=== PATIENT | female | born 1950 | race Caucasian/White ===

== ENCOUNTER 2019-05-09 05:55 | Inpatient (IN) ==
--- NOTE | 2019-04-25 15:10 | PAT Medication Instructions ---
Medication Instructions Date of Service April 25, 2019 Home Medications atorvastatin [Lipitor] 40 mg PO HS 04/19/19 [History Confirmed 04/19/19] canagliflozin [Invokana] 300 mg PO QAM 04/19/19 [History Confirmed 04/19/19] digoxin [Digox] 250 mcg PO UD 04/19/19 [History Confirmed 04/19/19] gemfibrozil 600 mg PO BID 04/19/19 [History Confirmed 04/19/19] insulin glargine [Lantus U-100 Insulin] 75 unit SUBCUT BID 04/19/19 [History Confirmed 04/19/19] levothyroxine 25 mcg PO QAM 04/19/19 [History Confirmed 04/19/19] magnesium 250 mg PO HS 04/19/19 [History Confirmed 04/19/19] metoprolol tartrate 50 mg PO TID 04/19/19 [History Confirmed 04/19/19] lmadznww-kkn-fqrzv acid-biotin [Hair,Skin and Nails(FA-biotin)] 1 tab PO QAM oxycodone-acetaminophen [Percocet] 0.5 tab PO Q6H PRN paroxetine HCl 20 mg PO QAM 04/19/19 [History Confirmed 04/19/19] potassium gluconate 600 mg PO HS 04/19/19 [History Confirmed 04/19/19] sertraline [Zoloft] 50 mg PO QPM 04/19/19 [History Confirmed 04/19/19] STOP taking 2 weeks before surgery (or as soon as possible if surgery is within 2 weeks) ylbxtcim-jgh-saiki acid-biotin [Hair,Skin and Nails(FA-biotin)] 1 tab PO QAM STOP taking 48 hours before surgery gemfibrozil 600 mg PO BID 04/19/19 [History Confirmed 04/19/19] DO NOT take the morning of surgery canagliflozin [Invokana] 300 mg PO QAM 04/19/19 [History Confirmed 04/19/19] Take morning of surgery With a small sip of water, OTHERWISE NOTHING TO EAT OR DRINK AFTER MIDNIGHT: digoxin [Digox] 250 mcg PO UD 04/19/19 [History Confirmed 04/19/19] levothyroxine 25 mcg PO QAM 04/19/19 [History Confirmed 04/19/19] metoprolol tartrate 50 mg PO TID 04/19/19 [History Confirmed 04/19/19] oxycodone-acetaminophen [Percocet] 0.5 tab PO Q6H PRN (okay to take up to 4 hours prior to surgery if needed) paroxetine HCl 20 mg PO QAM 04/19/19 [History Confirmed 04/19/19] Take evening before surgery atorvastatin [Lipitor] 40 mg PO HS 04/19/19 [History Confirmed 04/19/19] insulin glargine [Lantus U-100 Insulin] 75 unit SUBCUT BID 04/19/19 [History Confirmed 04/19/19] magnesium 250 mg PO HS 04/19/19 [History Confirmed 04/19/19] metoprolol tartrate 50 mg PO TID 04/19/19 [History Confirmed 04/19/19] oxycodone-acetaminophen [Percocet] 0.5 tab PO Q6H PRN (if needed) potassium gluconate 600 mg PO HS 04/19/19 [History Confirmed 04/19/19] sertraline [Zoloft] 50 mg PO QPM 04/19/19 [History Confirmed 04/19/19] Insulin Dependent Diabetic Patients * Test your blood sugar the morning of surgery * If Blood Sugar is GREATER THAN 150, take HALF of your regular dose of: insulin glargine [Lantus U-100 Insulin] take 37 units * If Blood Sugar is LESS THAN 150, DO NOT TAKE ANY: insulin glargine [Lantus U- 100 Insulin] 75 unit SUBCUT BID Other Notes If you have any questions please call us at [phone] or [phone] or [phone] or [phone]
--- NOTE | 2019-04-26 10:16 | Anesthesiology Consultation ---
Date of Service April 26, 2019 Assessment & Plan (1) Encounter for pre-operative examination: - Check BSG AM DOS Chart Review Chart Review: Pending: Refer to Additional Notes / Consult section (pending preop testing (labs, EKG, CXR)) and Patient seen in Pre Admission Testing Teaching & Discussion Pre-Anesthesia Teaching/Discussion Notes: Instructed NPO after midnight before s urgery,except medications with 15 cc of water. Medication instructions provided according to the PAT guidelines. History Surgery Operation Date: 05/09/19 10:25 Proposed Procedures p L4-S1 Decompression and Fusion, Possible L3-L4 with Spinal Cord Monitoring - Joao uGerra, DO Height/Weight Height: 5 ft 4 in Weight: 71.9 kg Allergies Allergy/AdvReac Type Severity Reaction Status Date / Time Penicillins Allergy Severe HIVES, Verified 04/19/19 10:15 DIFFICULTY BREATHING metformin AdvReac ADVISED TO Verified 04/26/19 10:24 AVOID (SEE COMMENTS) Medications Home Medications Medication Instructions Recorded Confirmed Last Taken atorvastatin [Lipitor] 40 mg PO HS 04/19/19 04/19/19 Unknown canagliflozin [Invokana] 300 mg PO QAM 04/19/19 04/19/19 Unknown digoxin [Digox] 250 mcg PO UD 04/19/19 04/19/19 Unknown gemfibrozil 600 mg PO BID 04/19/19 04/19/19 Unknown insulin glargine [Lantus U-100 75 unit SUBCUT BID 04/19/19 04/19/19 Unknown Insulin] levothyroxine 25 mcg PO QAM 04/19/19 04/19/19 Unknown magnesium 250 mg PO HS 04/19/19 04/19/19 Unknown metoprolol tartrate 50 mg PO TID 04/19/19 04/19/19 Unknown fardvcwb-hkj-jglyq acid-biotin 1 tab PO QAM 04/19/19 04/19/19 Unknown [Hair,Skin and Nails(FA-biotin)] oxycodone-acetaminophen [Percocet] 0.5 tab PO Q6H PRN 04/19/19 04/19/19 Unknown paroxetine HCl 20 mg PO QAM 04/19/19 04/19/19 Unknown potassium gluconate 600 mg PO HS 04/19/19 04/19/19 Unknown sertraline [Zoloft] 50 mg PO QPM 04/19/19 04/19/19 Unknown Past Medical History Medical History Deep vein thrombosis RLE (30 years ago)- possibly related to OCPs/previously on blood thinners x few months Depression Diabetes mellitus, type 2 NIDDM Hyperlipidemia Hypothyroidism Kidney stones Osteoarthritis PAT (paroxysmal atrial tachycardia) controlled on beta meghna/digoxin x 30 years (PCP monitoring) Exercise / Class Metabolic Activity II 4-5 Yardwork/Stairs/Walk up hill (one flight of stairs (no chest pain/no sob)) Past Family History Family History Father Family history of diabetes mellitus Brother Family history of diabetes mellitus Sister Family history of diabetes mellitus Past Surgical History Surgical History H/O total hysterectomy History of bilateral tubal ligation History of cardiac cath 20+ YEARS AGO= NO STENTS History of cholecystectomy History of colonoscopy History of cystoscopy STONE REMOVAL History of dilatation and curettage History of esophagogastroduodenoscopy (EGD) History of repair of rotator cuff RT History of tonsillectomy and adenoidectomy History of tooth extraction Past Anesthesia History No Hx of Anesthesia Complications and No Family Hx of Anesthesia Complications (except daughter- PONV) History of PONV No Hx of PONV and Hx of Motion Sickness Social History Smoking Status: Former smoker tobacco type: cigarettes Do You Dip or Chew Tobacco: No Smoking End Date: QUIT 20 YEARS AGO Hx Alcohol Use: Yes Alcohol type: hard liquor alcohol intake frequency: a few times a week Hx Substance Use: No substance use type: does not use Review of Systems Patient denies chest pain, shortness of breath, dyspnea on exertion, reflux, cough, wheezing, palpitations. Physical Exam Vital Signs VITALS BP 158/74 (occasional borderline elevated BP readings in the past per patient- PCP/patient monitoring and typically well controlled) P 57 TEMP 98.1 SP02 95.1 RESP 16 PHYSICAL Full neck and c-spine range of motion. Full TMJ range of motion. TMD 2.5 finger breaths Mallampati Score 3 Dentition: full dentures upper/lower Lungs: clear throughout to auscultation Cardiac: regular rate and rhythm, I/ systolic murmur Spine: normal Carotid arteries: negative bruit Extremities: no edema Testing Echocardiogram Date: 03/08/19 LVEF 60-65%. Mild LAD. Mild AI. Physiologic pericardial effusion.
--- NOTE | 2019-04-26 11:11 | XRay Report ---
XR chest Pre-admission PA/Lat CLINICAL HISTORY: Preoperative chest COMPARISON STUDY: No previous studies for comparison. FINDINGS: The heart is the upper limits of normal in size. There is no failure. There is no lobar con solidation. There are no pleural effusions. There is a linear opacity at the left lung base, consiste nt with subsegmental atelectasis. IMPRESSION: Subsegmental atelectatic changes at the left lung base. No acute findings. Electronically signed by: Jonathon Davalos M.D. 04/26/2019 11:09 AM
[2019-04-26 12:33] LABS: Basophils # (auto) 0.02 K/uL (0-0.2); Basophils % (auto) 0.3 %; Eosinophils # (auto) 0.15 K/uL (0-0.5); Eosinophils % (auto) 2.6 %; Hematocrit (blood only) 46.9 % (37-47); Hemoglobin 15.9 g/dL (12.0-16.0); Immature Granulocytes # (auto) 0.02 K/uL (0.00-0.02); Immature Granulocytes % (auto) 0.3 %; Lymphocytes # (auto) 1.36 K/uL (1.2-3.4); Lymphocytes % (auto) 23.7 %; Mean Corpuscular Hemoglobin 31.7 pg (25-34); Mean Corpuscular Hgb Conc 33.9 g/dL (32-36); Mean Corpuscular Volume 93.6 fL (80-100); Mean Platelet Volume 11.4 fL (7.4-10.4); Monocytes # (auto) 0.62 K/uL (0.11-0.59); Monocytes % (auto) 10.8 %; Neutrophils # (auto) 3.58 K/uL (1.4-6.5); Neutrophils % (auto) 62.3 %; Platelet Count 145 K/uL (130-400); RDW Standard Deviation 44.3 fL (36.4-46.3); Red Blood Count 5.01 M/uL (4.2-5.4); White Blood Count 5.75 K/uL (4.8-10.8)
[2019-04-26 12:35] LABS: Appearance Urine Clear (Clear); Bacteria Urine Automated Negative (Negative); Bilirubin Urine Negative (Negative); Blood Urine Trace (Negative); Color Urine Yellow; Epithelial Cell Urine Auto >30 /lpf (0-5); Glucose Urine UA 3+ (Negative); Ketones Urine Negative (Negative); Leukocyte Esterase Urine 1+ (Negative); Nitrite Urine Negative (Negative); Protein Urine Negative (Negative); Specific Gravity Urine 1.037 (1.000-1.030); Urobilinogen Urine Negative (Negative)
[2019-04-26 12:45] LABS: Partial Thromboplastin Time 27.2 Seconds (21.0-31.0); Prothrombin Time 10.7 Seconds (9.0-12.0)
[2019-04-26 12:51] LABS: BUN Creatinine Ratio 28.4 (10-20); Calcium 9.6 mg/dl (8.5-10.1); Creatinine Clr Calc Pharmacy 75.8 ml/min; Est GFR (African American) 102.9; Est GFR (Non-African American) 88.8; Potassium 4.4 mmol/L (3.5-5.1)
[2019-04-26 12:55] LABS: Estimated Average Glucose 166 mg/dl; Hemoglobin A1C 7.4 % (4.5-5.6)
[2019-05-09] MEDS ORDERED: ACETAMINOPHEN 500 MG TAB PO SCH (06:00)
[2019-05-09] MEDS ORDERED: GABAPENTIN 300 MG CAP PO SCH (06:00)
[2019-05-09] MEDS ORDERED: LR 15ML/HR IV SCH (06:00)
[2019-05-09] MEDS ORDERED: CLINDAMYCIN 600 MG/54 ML BAG IV SCH ×2 (06:00)
[2019-05-09] MEDS ORDERED: CeleBREX 200 MG CAP PO SCH (06:00)
[2019-05-09] MEDS ORDERED: MIDAZOLAM HCL 1 MG/ML 2ML VIAL ONE (06:46)
[2019-05-09] MEDS ORDERED: HYDROmorphone INJ 2 MG/ML SYR/VIAL ONE ×2 (06:47→08:09)
[2019-05-09] MEDS ORDERED: fentaNYL citrate 100 MCG/2 ML VIAL ONE ×5 (06:47→09:53)
[2019-05-09] MEDS ORDERED: BACITRACIN INJ 50,000 UNIT VIAL ONE (07:00)
[2019-05-09] MEDS ORDERED: BUPIVACAINE/EPINEPHRINE 0.25% 1:200,000 30 ML VIAL ONE (07:01)
--- NOTE | 2019-05-09 07:25 | History & Physical Bridge Note ---
Date of Service May 09, 2019 History & Physical Bridge Note I have examined the patient, reviewed the History & Physical and in the interval since the performance of the History & Physical I have noted the following changes of clinical significance: no changes noted
--- NOTE | 2019-05-09 07:26 | History & Physical Report ---
Date of Service May 09, 2019 Assessment & Plan (1) Neurogenic claudication due to lumbar spinal stenosis: L4-S1 decompression and fusion possible L3-L4 Present on Admission?: Yes History of Present Illness Chief Complaint: Back and leg pain Primary Care Provider: Danie Breaux MD This is a 68-year-old male who presents with chronic persistent back and bilateral leg pain. After failing extensive course of nonoperative care is here for surgical intervention. Allergies Allergy/AdvReac Type Severity Reaction Status Date / Time Penicillins Allergy Severe HIVES, Verified 05/09/19 06:18 DIFFICULTY BREATHING metformin AdvReac ADVISED TO Verified 05/09/19 06:18 AVOID (SEE COMMENTS) Home Medications Home Medications Medication Instructions Recorded Confirmed Type atorvastatin [Lipitor] 40 mg PO HS 04/19/19 05/09/19 History canagliflozin [Invokana] 300 mg PO QAM 04/19/19 05/09/19 History digoxin [Digox] 250 mcg PO UD 04/19/19 05/09/19 History gemfibrozil 600 mg PO BID 04/19/19 05/09/19 History insulin glargine [Lantus U-100 75 unit SUBCUT BID 04/19/19 05/09/19 History Insulin] levothyroxine 25 mcg PO QAM 04/19/19 05/09/19 History magnesium 250 mg PO HS 04/19/19 05/09/19 History metoprolol tartrate 50 mg PO TID 04/19/19 05/09/19 History aultnnjc-syg-uzoxh acid-biotin 1 tab PO QAM 04/19/19 05/09/19 History [Hair,Skin and Nails(FA-biotin)] oxycodone-acetaminophen [Percocet] 0.5 tab PO Q6H PRN 04/19/19 05/09/19 History potassium gluconate 600 mg PO HS 04/19/19 05/09/19 History sertraline [Zoloft] 50 mg PO QPM 04/19/19 05/09/19 History piroxicam 20 mg PO DAILY 05/06/19 05/09/19 History Past Med/Surg History Medical History Deep vein thrombosis RLE (30 years ago)- possibly related to OCPs/previously on blood thinners x few months Depression Diabetes mellitus, type 2 NIDDM Hyperlipidemia Hypothyroidism Kidney stones Osteoarthritis PAT (paroxysmal atrial tachycardia) controlled on beta meghna/digoxin x 30 years (PCP monitoring) Surgical History H/O total hysterectomy History of bilateral tubal ligation History of cardiac cath 20+ YEARS AGO= NO STENTS History of cholecystectomy History of colonoscopy History of cystoscopy STONE REMOVAL History of dilatation and curettage History of esophagogastroduodenoscopy (EGD) History of repair of rotator cuff RT History of tonsillectomy and adenoidectomy History of tooth extraction Family History Father Family history of diabetes mellitus Brother Family history of diabetes mellitus Sister Family history of diabetes mellitus Social History Preferred Language: Armenian Communication Ability: Effective Staff Editor Required: No Beliefs That Will Affect Care: None Current Living Situation: Spouse Other Information That Helps Us Care for You: No Feels Safe at Home: Yes Safety Concerns: Feels Safe At This Time Smoking Status: Former smoker Tobacco Type: cigarettes ; Do You Dip or Chew Tobacco: No ; Smoking End Date: QUIT 20 YEARS AGO ; Second Hand Exposure: No ; Tobacco Cessation Education Requested by Patient: No Hx Alcohol Use: Yes Alcohol type: hard liquor Hx Substance Use: No Physical Exam Physical Exam: Patient is alert and oriented neurologically intact. Results & Data Vital Signs (Past 12 Hours) Vital Signs Temp Pulse Resp BP Pulse Ox 05/09/19 06:21 37 C 56 L 18 178/90 H 94
[2019-05-09] MEDS ORDERED: ePHEDrine sulfate 50 MG/ML AMP IV PRN (07:31)
[2019-05-09] MEDS ORDERED: ATROPINE SULFATE 0.1 MG/ML 10ML SYR IV PRN (07:31)
[2019-05-09] MEDS ORDERED: ONDANSETRON INJ 2 MG/ML 2 ML VIAL IV PRN ×2 (07:31→11:56)
[2019-05-09] MEDS ORDERED: LARYING-O-JET KIT (LTA) ONE ×2 (08:11→10:04)
[2019-05-09] MEDS ORDERED: DEXAMETHASONE SOD INJ 4 MG/ML VIAL ONE (08:12)
[2019-05-09] MEDS ORDERED: LIDOCAINE HCL 2% 2 ML VIAL/AMP(20MG/ML) INFIL ONE (08:12)
[2019-05-09] MEDS ORDERED: ONDANSETRON INJ 2 MG/ML 2 ML VIAL ONE (08:12)
[2019-05-09] MEDS ORDERED: GLYCOPYRROLATE 0.2 MG/ML VIAL ONE (08:12)
[2019-05-09] MEDS ORDERED: PROPOFOL IV EMULSION 10 MG/ML 20 ML VIAL IV ONE (08:12)
[2019-05-09] MEDS ORDERED: ROCURONIUM BROMIDE 10 MG/ML 5 ML VIAL ONE (08:12)
[2019-05-09] MEDS ORDERED: NEOSTIGMINE METHYLSULFATE 1 MG/ML 10ML VIAL ONE (08:12)
[2019-05-09] MEDS ORDERED: FLOSEAL HEMOSTATIC MATRIX 10ML TOP ONE (08:27)
[2019-05-09] MEDS ORDERED: ePHEDrine sulfate 50 MG/ML SYR ONE (09:06)
[2019-05-09] MEDS ORDERED: ePHEDrine sulfate 50 MG/ML AMP ONE (09:06)
--- NOTE | 2019-05-09 09:54 | Operative Report ---
Post Operative Report Pre & Post Diagnosis Operation Date: 05/09/19 07:45 Pre-Op Diagnosis: Lumbar spinal stenosis with neurogenic claudication Post-Op Diagnosis: Same I identified the patient and participated in the time-out.: Yes Procedure Operation Date: 05/09/19 07:45 Actual Procedures #1 lumbar decompression with bilateral medial facetectomies and foraminotomies L3-4 L4-5 L5-S1. #2 posterior spinal fusion L4-5 L5-S1. #3 placement posterior instrumentation L4-5 L5-S1. #4 interbody fusion L4-5 L5-S1 per #5 placed a peek cage 11 x 22 mm at L4-5 and 7 x 22 mm at L5-S1. #6 placement of locally harvested morselized autograft in the posterior lateral gutters per #7 placement infuse collagen sponge bone mass graft in the posterior lateral gutters and ostial amp and interbody space. Surgeon Joao Guerra, Box Spring Maker Bobbi Jang Estimated Blood Loss 325 Findings Consistent with Post-Op Diagnosis Specimens None Indications This is a 68-year-old female who presents with above-mentioned diagnosis after failing extensive course of nonoperative care is here for surgical intervention. Description of Procedure Patient was met with identified and informed consent obtained. Patient was then taken to the operative suite underwent intubation placed in a prone position the Ulices table on top of the Willi frame. All bony prominences well-padded eyes inspected to ensure no external pressure placed upon the peer at this point the lumbar spine was prepped and draped in a sterile fashion. Sharp dissection with the assistance of Bovie cautery was performed down to and exposing the lamina transverse processes of L for L5 and sacral ala bilaterally. From a caudal cephalad fashion complete laminectomy of L5 L4 partial laminectomy of L3 was performed including bilateral medial facetectomies and foraminotomies addressing severe stenosis. Pedicle screws were then placed in L4 and L5 and S1 levels bilaterally with assistance of fluoroscopy the purposes judit placed. By way of a transforaminal approach and left complete discectomy of all 5 S1 was performed endplates curetted to subcortical bleeding bone and a 7 x 22 mm peek cage filled with ostium bone graft tapped in position. I then proceeded L4-[address] of a transforaminal approach and left complete discectomy performed endplates curetted to subcortical being bone and then 11 x 22 mm peek cage filled with osteo-amp bone graft tapped in position. The rods were then locked in final position bilaterally. The transverse processes of L for L5 and sacral ala bur to subcortical bleeding bone. Infuse collagen sponge master graft and local autograft placed in the posterior lateral gutters. 15 round JACK drain inserted. The incision was then closed with 1 Vicryl in the fascia 2-0 Vicryl subcutaneous and 4 Monocryl for final skin closure. Steri-Strip sterile dressings placed. Patient will continue PACU stable disc. Please note Bobbi Jang present all the entire procedure involved the patient positioning complex portions of the surgery and final skin closure. Lastly spinal cord monitoring was utilized that the procedure no changes noted. I attest to the content of the Intraoperative Record and any orders documented therein. Any exceptions are noted below.
[2019-05-09] MEDS ORDERED: ESMOLOL HCL INJ 10 MG/ML 10ML VIAL IV ONE (10:04)
[2019-05-09] MEDS ORDERED: KETOROLAC 30 MG/ML VIAL ONE (10:04)
--- NOTE | 2019-05-09 10:04 | Fluoroscopy Report ---
FL lumbar spine 2-3V CLINICAL HISTORY: 68 years-old Female presenting with L4-S1 DECOMPRESSION AND FUSION POSSIBLE L3-L4. TECHNIQUE: 2 fluoroscopic image(s) recorded as part of an intraoperative procedure. COMPARISON: None. FINDINGS/IMPRESSION: Posterior bilateral transpedicular screw and judit fixation of L4-S1 with interbody spacers at L4-5 and L5-S1 and laminectomy defects at L4 and L5. Normal anatomic alignment. Mild spondylitic spurring rome dent. No gross hardware breakage. Please see surgical report for further details. Fluoroscopy dosage (mGy): 13.53. Fluoroscopy time: 26.7 seconds. Number or time of high level fluoroscopy (HLF), digital spot, or digital subtraction images: 0. Electronically signed by: Ruy Leung M.D. 05/09/2019 10:03 AM
[2019-05-09] MEDS: fentaNYL citrate 100 MCG/2 ML VIAL IV PRN ×2 (10:41→10:48)
[2019-05-09] MEDS: HYDROmorphone INJ 2 MG/ML SYR/VIAL IV PRN ×4 (10:54→11:12)
--- NOTE | 2019-05-09 11:39 | Anesthesiology Progress Note ---
Date of Service May 09, 2019 Anesthesia Post Procedure Vital Signs Vital Signs: Temp Pulse Pulse Resp BP Pulse Ox 05/09/19 11:30 36.7 C 94 H 16 133/66 94 05/09/19 11:20 87 12 145/58 H 93 05/09/19 11:10 92 H 21 151/64 H 97 05/09/19 11:00 89 15 157/66 H 93 05/09/19 10:50 88 16 165/71 H 97 05/09/19 10:40 85 15 169/81 H 94 05/09/19 10:30 83 12 163/84 H 98 05/09/19 10:20 86 12 171/80 H 97 05/09/19 10:10 36.4 C L 81 12 140/66 94 05/09/19 06:21 37 C 56 L 18 178/90 H 94 Pain Intensity Left Hip: Pain Intensity: 7 Lower Back: Pain Intensity: 6 Transfer of Care Handoff Completed per policy Notes Mental Status: alert / awake / arousable and participated in evaluation Patient Amnestic to Procedure: Yes Nausea / Vomiting: adequately controlled Pain: improving with treatment Airway Patency, RR, SpO2: stable & adequate BP & HR: stable & adequate Hydration State: stable & adequate Anesthetic Complications: no major complications apparent and Pt Satisfied with anesthetic care
[2019-05-09] MEDS ORDERED: SOD PHOSPHATE/SOD BIPHOSPHATE ENEMA 132 ML BTL PR PRN (11:56)
[2019-05-09] MEDS ORDERED: FAMOTIDINE 20 MG TAB PO PRN (11:56)
[2019-05-09] MEDS ORDERED: bisacodyL 10 MG SUPP PR PRN (11:56)
[2019-05-09] MEDS ORDERED: HYDROmorphone INJ 1 MG/ML SYRINGE IV PRN (11:56)
[2019-05-09] MEDS ORDERED: ACETAMINOPHEN 1,000 MG/100 ML VIAL IV PRN (11:56)
[2019-05-09] MEDS ORDERED: LORazepam 0.5 MG TAB PO PRN (11:56)
[2019-05-09] MEDS ORDERED: METOCLOPRAMIDE HCL INJ 5 MG/ML 2 ML VIAL IV PRN (11:56)
[2019-05-09] MEDS ORDERED: DO NOT ADMINISTER FLU VACCINE PRN (11:56)
[2019-05-09] MEDS ORDERED: ONDANSETRON 4 MG OD TAB PO PRN (11:56)
[2019-05-09] MEDS ORDERED: MAGNESIUM HYDROXIDE SUSP 30 ML UDC PO PRN (11:56)
[2019-05-09] MEDS ORDERED: PROMETHAZINE HCL 12.5 MG in SODIUM CHLORIDE 0.9% 50 ML IV PRN (11:56)
[2019-05-09] MEDS ORDERED: HYDROmorphone INJ 0.5 MG/0.5 ML SYR IV PRN (11:56)
[2019-05-09] MEDS ORDERED: ALUMINUM/MAGNESIUM SUSP 30 ML UDC PO PRN (11:56)
[2019-05-09] MEDS ORDERED: NALOXONE HCL 0.4 MG/1 ML VIAL/CARP IV PRN (11:56)
[2019-05-09] MEDS ORDERED: LORazepam 0.5 MG/1 ML VIAL IV PRN (11:56)
[2019-05-09] MEDS ORDERED: DO NOT ADMINISTER PNEUMOCOCCAL VACCINE PRN (11:56)
--- NOTE | 2019-05-09 12:28 | Hospitalist Consultation ---
Date of Consultation May 09, 2019 Assessment & Plan (1) S/P spinal surgery: This is a 68yo F with a PMH of paroxysmal atrial tachycardia, DM II on insulin, hypothyroidism, mood disorder and other medical problems listed below who is POD #0 s/p #1 lumbar decompression with bilateral medial facetectomies and foraminotomies L3-4 L4-5 L5-S1, posterior spinal fusion L4-5 L5-S1 and placement posterior instrumentation L4-5 L5-S1 by Dr[address] Guerra. -POD#0 s/p decompression and fusion L3-S1 with Dr. Guerra -Pt is doing well post-operatively -Per ortho for pain control, wound care, anticoagulation and activities -Monitor H&H (pre-op hgb of 15.9. EBL: 325ml, JACK drain output 160ml) -Continue incentive spirometry, PT/OT when appropriate (2) PAT (paroxysmal atrial tachycardia): Chronic issue managed by PCP. On Digoxin and Lopressor -HR 95 post-operatively -Digoxin level ordered -Continue home dose digoxin and beta meghna (3) Diabetes mellitus, type 2: A1c of 7.4 in Apr 2019 -Hold home agents -Given 15u x 1 Lantus post-operatively with BSG of 180 -Basal bolus insulin ordered per protocol while in-patient -BSG AC HS (4) Deep vein thrombosis: H/o RLE DVT ~ 30 years ago while on oral contraceptive. No issues since (5) Depression: Continue Zoloft (6) Hyperlipidemia: Continue atorvastatin (7) Hypothyroidism: Continue levothyroxine PCP: Dr. Breaux in [place] Dispo: Per primary service Patient seen in collaboration with Dr. Calvo. Please see addendum. Supervising Physician Co-Signing Physician Notes ROS-No Headache, No Visual Changes, No Nausea, No Vomiting, No Fever, No Chills, No Neck Pain or Stiffness, No Chest Pain, No Palpitations, No SOB, No REEVES, No Cough, No Sputum, No Wheezing, No Abdominal Pain, No Diarrhea, No Hematemesis, No Hemoptysis, No Unexpected Weight Loss, No Flank pain, No Melena, No Hematochezia, No Frequency, No Urgency, No Burning, No Hematuria, No Rashes, No Diaphoresis. Appetite is Normal, Sore Back Physical Exam Gen-AAO x 3, NAD, Afebrile Head-NCAT, EOMI, PERRLA, Anicteric Sclera, No Posterior Pharyngeal Erythema Neck-Supple, No JVD, No Thyromegaly, No Masses, No LAD, No Bruits Lungs-Clear to Auscultation Bilaterally, No Rales, No Rhonchi, No Wheezing, No Crepitus Chest-No S4, +S1, +S2, No S3, No Murmurs, No Rubs, No Gallops, No Ectopy Abdomen-Soft, Bowel Sounds Present, Non Tender, Non Distended, No Hepatomegaly, No Splenomegaly, No Palpable Masses, No Rebound, No Rigidity, No Guarding Musculoskeletal-Full Range of Motion Bilaterally, No CVAT Extremities-No Cyanosis, No Clubbing, No Edema Nuero-Cranial Nerves II-XII grossly intact, Motor WNL, DTRs WNL, Strength WNL, Non Focal Psych-Normal Mood History of Present Illness Reason for Consultation: post op med mgmt Attending Physician: Joao Guerra DO History of Present Illness This is a 68yo F with a PMH of paroxysmal atrial tachycardia, DM II on insulin, hypothyroidism, mood disorder and other medical problems listed below who is POD #0 s/p #1 lumbar decompression with bilateral medial facetectomies and foraminotomies L3-4 L4-5 L5-S1, posterior spinal fusion L4-5 L5-S1 and placement posterior instrumentation L4-5 L5-S1 by Dr. Guerra. Patient is feeling well post operatively with minimal surgical site discomfort. Has some chronic LLE paresthesias but have improved since surgery. No fever, chills, lightheadedness. visual changes, chest pain, SOB, nausea, vomiting, abdominal pain, dysuria, diarrhea or constipation. Last bowel movement was this morning. Was instructed to not take any pre-op insulin this morning if BSG <150. Allergies Allergy/AdvReac Type Severity Reaction Status Date / Time Penicillins Allergy Severe HIVES, Verified 05/09/19 06:18 DIFFICULTY BREATHING metformin AdvReac ADVISED TO Verified 05/09/19 06:18 AVOID (SEE COMMENTS) Home Medications Home Medications Medication Instructions Recorded Confirmed Type atorvastatin [Lipitor] 40 mg PO HS 04/19/19 05/09/19 History canagliflozin [Invokana] 300 mg PO QAM 04/19/19 05/09/19 History digoxin [Digox] 375 mcg PO DAILY 04/19/19 05/09/19 History gemfibrozil 600 mg PO BID 04/19/19 05/09/19 History insulin glargine [Lantus U-100 75 unit SUBCUT BID 04/19/19 05/09/19 History Insulin] levothyroxine 25 mcg PO QAM 04/19/19 05/09/19 History magnesium 250 mg PO HS 04/19/19 05/09/19 History metoprolol tartrate 50 mg PO TID 04/19/19 05/09/19 History enssxuid-suy-uepdf acid-biotin 1 tab PO QAM 04/19/19 05/09/19 History [Hair,Skin and Nails(FA-biotin)] oxycodone-acetaminophen [Percocet] 0.5 tab PO Q6H PRN 04/19/19 05/09/19 History potassium gluconate 600 mg PO HS 04/19/19 05/09/19 History sertraline [Zoloft] 50 mg PO QPM 04/19/19 05/09/19 History piroxicam 20 mg PO DAILY 05/06/19 05/09/19 History oxycodone 5 mg PO Q6H PRN #30 tab 05/09/19 Rx tramadol 50 mg PO Q6H PRN #30 tab 05/09/19 Rx Patient History Medical History (Updated 05/09/19 @ 13:33 by Alina Khan PA-C) Deep vein thrombosis RLE (30 years ago)- possibly related to OCPs/previously on blood thinners x few months Depression Diabetes mellitus, type 2 Hyperlipidemia Hypothyroidism Kidney stones Osteoarthritis PAT (paroxysmal atrial tachycardia) controlled on beta meghna/digoxin x 30 years (PCP monitoring) Surgical History (Updated 05/09/19 @ 13:33 by Alina Khan PA-C) H/O total hysterectomy History of bilateral tubal ligation History of cardiac cath 20+ YEARS AGO= NO STENTS History of cholecystectomy History of colonoscopy History of cystoscopy STONE REMOVAL History of dilatation and curettage History of esophagogastroduodenoscopy (EGD) History of repair of rotator cuff RT History of tonsillectomy and adenoidectomy History of tooth extraction Family History Father Family history of diabetes mellitus Brother Family history of diabetes mellitus Sister Family history of diabetes mellitus Social History Preferred Language: Yakut Communication Ability: Effective 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 Physical Exam Physical Exam: General Appearance: WD/WN, vitals as above, NAD, sitting up in bed, pleasant, conversing easily Head: normocephalic, atraumatic Eyes: normal inspection, PERRL, conjunctivae normal, anicteric sclerae ENT: external ear and nose normal, oropharynx normal Neck: trachea midline, no thyromegaly normal visual inspection Respiratory: normal respiratory effort, lungs clear to auscultation, no wheeze, rales, rhonchi. Normal insp/exp effort, no accessory muscle use Cardiovascular: tachycardic rate, normal rhythm, no murmur appreciated, normal peripheral pulses. Vessels: no JVD or carotid bruit Chest: normal inspection of chest Abdomen/GI: normal bowel sounds, soft, nontender, no hepatosplenomegaly Extremities/Musculoskelatal: +Lumbosacral surgical dressing clean, dry, intact. JACK drain with sanguineous drainage. No cyanosis or clubbing, extremities motor strength 5/5 Neurologic: PERRL, EOMI, CN's II-XI intact bilaterally and moves all extremities Psychiatric: A+Ox3, euthymic affect Skin: no rashes, normal color, warm/dry Results & Data Vital Signs (Past 12 Hours) Vital Signs Temp Pulse Pulse Resp BP Pulse Ox 05/09/19 12:20 90 16 136/71 95 05/09/19 11:30 36.7 C 94 H 16 133/66 94 05/09/19 11:20 87 12 145/58 H 93 05/09/19 11:10 92 H 21 151/64 H 97 05/09/19 11:00 89 15 157/66 H 93 05/09/19 10:50 88 16 165/71 H 97 05/09/19 10:40 85 15 169/81 H 94 05/09/19 10:30 83 12 163/84 H 98 05/09/19 10:20 86 12 171/80 H 97 05/09/19 10:10 36.4 C L 81 12 140/66 94 05/09/19 06:21 37 C 56 L 18 178/90 H 94 Laboratory Results Pertinent pre-op labwork: (04/26/19) Hgb: 15.9 Plt: 145 Cr: 0.71 Hgb a1c: 7.4 Also with abnormal UA on 04/26. Urine culture grew mixed skin hunter.
[2019-05-09] MEDS: OXYCODONE HCL IR 5 MG TAB (IMMEDIATE RELEASE) PO PRN ×2 (12:48→20:46)
[2019-05-09] MEDS ORDERED: INSULIN GLARGINE SOLOSTAR 100 UNITS/ML 3 ML PEN SC STA (13:00)
[2019-05-09] MEDS ORDERED: DEXTROSE 50% 50 ML SYRINGE IV PRN (13:03)
[2019-05-09] MEDS ORDERED: GLUCAGON FOR INJ 1 MG VIAL SQ PRN (13:03)
[2019-05-09] MEDS ORDERED: CARBOHYDRATES FOR HYPOGLYCEMIA PO PRN (13:03)
[2019-05-09] MEDS ORDERED: GLUCOSE 10 TABS/TUBE PO PRN (13:03)
[2019-05-09] MEDS ORDERED: GLUCOSE 40% GEL 15 GM TUBE PO PRN (13:03)
[2019-05-09] MEDS: METOPROLOL TARTRATE 50 MG TAB PO SCH ×2 (13:11→20:51)
[2019-05-09] MEDS: SODIUM CHLORIDE 0.9% 1000ML 1,000 ML IV SCH ×2 (13:12→22:25)
[2019-05-09] MEDS: INSULIN ASPART 100 UNITS/ML 3 ML PEN SC SCH ×3 (13:52→20:52)
[2019-05-09] MEDS: CLINDAMYCIN 600 MG in DEXTROSE 5% 50 ML IV SCH ×2 (15:55→23:44)
[2019-05-09] MEDS: TRAMADOL HCL 50 MG TABLET PO PRN ×2 (15:58→23:44)
[2019-05-09] MEDS: INSULIN GLARGINE SOLOSTAR 100 UNITS/ML 3 ML PEN SC SCH (20:48)
[2019-05-09] MEDS: ATORVASTATIN 40 MG TAB PO SCH (20:49)
[2019-05-09] MEDS: gemfibroziL 600 MG TAB PO SCH (20:49)
[2019-05-09] MEDS: MAGNESIUM OXIDE 400 MG TAB PO SCH (20:51)
[2019-05-09] MEDS: SERTRALINE HCL 50 MG TABLET PO SCH (20:52)
[2019-05-09] MEDS: DOCUSATE SODIUM/SENNA 50/8.6MG TAB PO SCH (20:52)
[2019-05-09] MEDS ORDERED: NON-FORMULARY MEDICATION (Potassium Gluconate 600 MG) PO SCH (21:00)
[2019-05-10] MEDS: ACETAMINOPHEN 500 MG TAB PO PRN ×2 (03:50→13:16)
[2019-05-10] MEDS: POLYETHYLENE (MIRALAX) 17 GM PACK PO SCH ×5 (05:39→23:33)
[2019-05-10] MEDS: LEVOTHYROXINE SODIUM 25 MCG TABLET PO SCH (05:39)
[2019-05-10 07:06] LABS: Basophils # (auto) 0.01 K/uL (0-0.2); Basophils % (auto) 0.1 %; Eosinophils # (auto) 0.01 K/uL (0-0.5); Eosinophils % (auto) 0.1 %; Hematocrit (blood only) 37.6 % (37-47); Hemoglobin 12.3 g/dL (12.0-16.0); Immature Granulocytes # (auto) 0.02 K/uL (0.00-0.02); Immature Granulocytes % (auto) 0.2 %; Lymphocytes # (auto) 1.19 K/uL (1.2-3.4); Lymphocytes % (auto) 12.2 %; Mean Corpuscular Hgb Conc 32.7 g/dL (32-36); Mean Corpuscular Volume 94.7 fL (80-100); Mean Platelet Volume 10.4 fL (7.4-10.4); Monocytes # (auto) 1.07 K/uL (0.11-0.59); Neutrophils # (auto) 7.44 K/uL (1.4-6.5); Neutrophils % (auto) 76.4 %; Platelet Count 138 K/uL (130-400); RDW Coefficient of Variation 12.9 % (11.5-14.5); RDW Standard Deviation 44.6 fL (36.4-46.3); Red Blood Count 3.97 M/uL (4.2-5.4); White Blood Count 9.74 K/uL (4.8-10.8)
[2019-05-10 07:38] LABS: BUN Creatinine Ratio 25.1 (10-20); Calcium 8.5 mg/dl (8.5-10.1); Creatinine Clr Calc Pharmacy 99.6 ml/min; Est GFR (Non-African American) 98.3; Potassium 3.8 mmol/L (3.5-5.1)
--- NOTE | 2019-05-10 08:10 | Anesthesiology Progress Note ---
Date of Service May 10, 2019 Anesthesia Post Procedure Vital Signs Vital Signs: Temp Pulse Pulse Pulse Resp BP Pulse Ox 05/10/19 07:26 36.9 C 75 16 119/64 93 05/10/19 04:18 37 C 75 18 127/63 92 05/09/19 23:10 36.7 C 76 16 123/62 95 05/09/19 20:50 83 128/70 05/09/19 15:21 36.7 C 79 17 127/70 96 05/09/19 14:56 36.7 C 80 16 132/68 97 05/09/19 13:46 99 H 16 112/65 96 05/09/19 12:50 95 H 18 148/74 H 93 05/09/19 12:20 90 16 136/71 95 05/09/19 11:50 36.8 C 96 H 16 135/70 96 05/09/19 11:30 36.7 C 94 H 16 133/66 94 05/09/19 11:20 87 12 145/58 H 93 05/09/19 11:10 92 H 21 151/64 H 97 05/09/19 11:00 89 15 157/66 H 93 05/09/19 10:50 88 16 165/71 H 97 05/09/19 10:40 85 15 169/81 H 94 05/09/19 10:30 83 12 163/84 H 98 05/09/19 10:20 86 12 171/80 H 97 05/09/19 10:10 36.4 C L 81 12 140/66 94 Pain Intensity Left Hip: Pain Intensity: 7 Lower Back: Pain Intensity: 8 Notes Mental Status: alert / awake / arousable and participated in evaluation Patient Amnestic to Procedure: Yes Nausea / Vomiting: adequately controlled Pain: adequately controlled Airway Patency, RR, SpO2: stable & adequate BP & HR: stable & adequate Hydration State: stable & adequate Anesthetic Complications: no major complications apparent and Pt Satisfied with anesthetic care
[2019-05-10] MEDS: MULTIVITAMIN TAB PO SCH (08:42)
[2019-05-10] MEDS: DIGOXIN 0.25 MG TAB PO SCH (08:43)
[2019-05-10] MEDS: gemfibroziL 600 MG TAB PO SCH ×2 (08:43→20:37)
[2019-05-10] MEDS: PIROXICAM 10 MG CAP PO SCH (08:43)
[2019-05-10] MEDS: METOPROLOL TARTRATE 50 MG TAB PO SCH ×3 (08:45→20:36)
[2019-05-10] MEDS: TRAMADOL HCL 50 MG TABLET PO PRN ×2 (08:47→20:42)
[2019-05-10] MEDS ORDERED: NON-FORMULARY MEDICATION (Canagliflozin [Invokana] 300 MG) PO SCH (09:00)
--- NOTE | 2019-05-10 09:01 | Hospitalist Progress Note ---
Date of Service May 10, 2019 Assessment & Plan (1) S/P spinal surgery: This is a 68yo F with a PMH of paroxysmal atrial tachycardia, IDDM, hypothyroidism, mood disorder and other medical problems listed below who is: POD #1 s/p #1 lumbar decompression with bilateral medial facetectomies and foraminotomies L3-4 L4-5 L5-S1, posterior spinal fusion L4-5 L5-S1 and placement posterior instrumentation L4-5 L5-S1 by Dr. Guerra. tolerated procedure well EBL 325ml; JACK drain output:450ml pain/wound management per ortho activity and therapy as directed my ortho encourage incentive spirometry H&H stable - pre op hgb 15.9, today 12.3 (2) PAT (paroxysmal atrial tachycardia): rate and rhythm controlled on Digoxin and Lopressor Dig level 1.4 (3) Diabetes mellitus, type 2: A1c of 7.4 in Apr 2019 Hold invokana Given 15u x 1 Lantus post-operatively with BSG of 180 Basal bolus insulin ordered per protocol while in-patient BSG 85 this morning (4) Deep vein thrombosis: hx of RLE dvt 30 yrs ago on oral contraceptive dvt ppx per ortho (5) Depression: Continue Zoloft mood stable (6) Hyperlipidemia: Continue atorvastatin (7) Hypothyroidism: Continue levothyroxine PCP: Dr. Breaux in [place] Dispo: Per primary service Patient seen in and examined in collaboration with Dr. Humphrey. Please see addendum. Supervising Physician Co-Signing Physician Notes Care coordinated with CECY Branham. Doing well postoperatively. No chest pain, cough, SOB, nausea, vomiting. Pain well-controlled. Exam: General- no distress Lungs- clear Heart- RRR Abd- + BS, soft, nontender Extr- no pretibial edema or calf tenderness FBS 85 A/P: S/P lumbar decompression / fusion. History of PAT. DM type 2 Remote history of DVT. Doing well postop. Diabetes well-controlled on Lantus & NovoLog. Continue metoprolol and digoxin for history of PAT. VTE prophylaxis per Ortho protocol. Thank you for this consultation. We will follow the patient with you during their hospital stay. My cell # is [phone]. You can reach a member of the [facility] Medicine Team 05/01 via pager @ [phone]. Subjective Patient seen and examined in room 311-1. S/P Lumbar surgery by Dr. Guerra POD #1. She is sitting up at bedside eating breakfast. Offers no concerns or complaints. Mild incisional back discomfort. Denies f/c/s, chest pain, sob, palpitations, n/v, abdominal pain. +flatus but no BM. Continues to have dwyer cath in place and ready to have this removed. She has been ambulating to and from bathroom without difficulty. Good Appetite. Review of Systems Review of Systems: All systems reviewed & are unremarkable except as noted in HPI & below Physical Exam Physical Exam: Gen: WD/WN, F, sitting up at bedside, NAD, A&O x3 HEENT: Normocephalic, atraumatic, conjunctivae moist, sclerae anicteric, mucous membranes moist. Lung: Clear to Auscultation bilaterally, no wheezes/rales/rhonchi Heart: Regular rate, regular rhythm, 1/6 KRISH noted RUSB w/o radiation, no rubs, or gallops Abdomen: Soft, NT, ND +BS x 4 Extremities: No edema, lumbar dressing CDI, JACK drain with serosanginous drainage Skin: Warm, no rash, negative turgor. : +Dwyer cath draining clear yellow urine Results & Data Vital Signs (Past 12 Hours) Vital Signs Temp Pulse Pulse Pulse Pulse Resp BP 05/10/19 08:43 68 05/10/19 08:41 68 109/67 05/10/19 07:26 36.9 C 75 16 05/10/19 04:18 37 C 75 18 05/09/19 23:10 36.7 C 76 16 BP Pulse Ox 05/10/19 08:43 05/10/19 08:41 05/10/19 07:26 119/64 93 05/10/19 04:18 127/63 92 05/09/19 23:10 123/62 95 Laboratory Results Short CBC 05/10/19 Range/Units 06:15 WBC 9.74 (4.8-10.8) K/uL Hgb 12.3 (12.0-16.0) g/dL Hct 37.6 (37-47) % Plt Count 138 (130-400) K/uL BMP 05/10/19 06:15 Sodium 138 Potassium 3.8 Chloride 106 Carbon Dioxide 27 BUN 14 Creatinine 0.54 L Glucose 85 Calcium 8.5 Medications Administered Acetaminophen (Tylenol) 1,000 mg PO Q8H PRN PRN Reason: MILD Pain Rating 1,2,3 Stop: 06/08/19 11:55 Last Admin: 05/10/19 03:50 Dose: 1,000 mg Documented by: [id number] Atorvastatin Calcium (Lipitor) 40 mg PO [facility] Stop: 06/08/19 20:59 Last Admin: 05/09/19 20:49 Dose: 40 mg Documented by: [id number] Digoxin (Lanoxin) 0.375 mg PO QAM [facility] Stop: 06/09/19 08:59 Last Admin: 05/10/19 08:43 Dose: 0.375 mg Documented by: [id number] Gemfibrozil (Lopid) 600 mg PO BID [facility] Stop: 06/08/19 20:59 Last Admin: 05/10/19 08:43 Dose: 600 mg Documented by: [id number] Admin: 05/09/19 20:49 Dose: 600 mg Documented by: [id number] Insulin Aspart (Novolog Flexpen) 0 units SC [facility] Stop: 06/08/19 13:09 Last Admin: 05/09/19 20:52 Dose: Not Given Documented by: [id number] Cosigned by: [id number] Admin: 05/09/19 17:35 Dose: 3 units Documented by: [id number] Cosigned by: [id number] Admin: 05/09/19 13:52 Dose: 4 units Documented by: [id number] Cosigned by: [id number] Insulin Glargine (Lantus Solostar Pen) 0 - 75 units SC BID [facility]; Protocol Stop: 06/08/19 20:59 Last Admin: 05/09/19 20:48 Dose: 37 units Documented by: [id number] Cosigned by: [id number] Levothyroxine Sodium (Synthroid) 25 mcg PO DAILYBB [facility] Stop: 06/09/19 06:29 Last Admin: 05/10/19 05:39 Dose: 25 mcg Documented by: [id number] Lorazepam (Ativan) 0.5 mg PO Q8H PRN PRN Reason: Sedation/Anxiety Stop: 06/08/19 11:55 Last Admin: 05/09/19 17:38 Dose: 0.5 mg Documented by: [id number] Magnesium Oxide (Mag-Ox) 400 mg PO [facility] Stop: 06/08/19 20:59 Last Admin: 05/09/19 20:51 Dose: 400 mg Documented by: [id number] Metoprolol Tartrate (Lopressor) 50 mg PO TID [facility] Stop: 06/08/19 13:59 Last Admin: 05/10/19 08:45 Dose: 50 mg Documented by: [id number] Admin: 05/09/19 20:51 Dose: 50 mg Documented by: [id number] Admin: 05/09/19 13:11 Dose: 50 mg Documented by: [id number] Multivitamins (Multivitamin Tab) 1 tab PO QAM [facility] Stop: 06/09/19 08:59 Last Admin: 05/10/19 08:42 Dose: Not Given Documented by: [id number] Oxycodone HCl (Roxicodone Immediate Rel) 5 - 10 mg PO Q4H PRN PRN Reason: Moderate-Severe Pain Stop: 05/23/19 11:55 Last Admin: 05/09/19 20:46 Dose: 10 mg Documented by: [id number] Admin: 05/09/19 12:48 Dose: 10 mg Documented by: [id number] Piroxicam (Feldene) 20 mg PO DAILY [facility] Stop: 06/09/19 08:59 Last Admin: 05/10/19 08:43 Dose: 20 mg Documented by: [id number] Polyethylene Glycol (Miralax Powder Packet) 17 gm PO Q6 [facility] Stop: 06/09/19 05:59 Last Admin: 05/10/19 05:39 Dose: 17 gm Documented by: [id number] Senna/Docusate Sodium (Senokot S) 2 tab PO HS [facility] Stop: 06/08/19 20:59 Last Admin: 05/09/19 20:52 Dose: 2 tab Documented by: [id number] Sertraline HCl (Zoloft) 50 mg PO QPM [facility] Stop: 06/08/19 20:59 Last Admin: 05/09/19 20:52 Dose: 50 mg Documented by: [id number] Tramadol HCl (Ultram) 50 - 100 mg PO Q4H PRN PRN Reason: Moderate-Severe Pain Stop: 06/08/19 11:55 Last Admin: 05/10/19 08:47 Dose: 50 mg Documented by: [id number] Admin: 05/09/19 23:44 Dose: 100 mg Documented by: [id number] Admin: 05/09/19 15:58 Dose: 100 mg Documented by: [id number] Discontinued Medications Acetaminophen (Tylenol) 1,000 mg PO PREOP [facility] Stop: 05/09/19 18:00 Last Admin: 05/09/19 06:42 Dose: 1,000 mg Documented by: [id number] Bacitracin (Bacitracin) Confirm Administered Dose 50,000 units .ROUTE .STK-MED ONE Stop: 05/09/19 07:01 Last Admin: 05/09/19 08:32 Dose: 50,000 units Documented by: [id number] Bupivacaine HCl/Epinephrine Bitart (Bupivacaine 0.25%-Epi [id number]) Confirm Administered Dose 30 ml .ROUTE .STK-MED ONE Stop: 05/09/19 07:02 Last Admin: 05/09/19 08:33 Dose: 20 ml Documented by: [id number] Celecoxib (Celebrex) 200 mg PO PREOP [facility] Stop: 05/09/19 18:00 Last Admin: 05/09/19 06:42 Dose: 200 mg Documented by: [id number] Fentanyl Citrate (Fentanyl Citrate) 50 mcg IV Q5M PRN PRN Reason: PACU Use Only-Pain Stop: 05/09/19 12:32 Last Admin: 05/09/19 10:48 Dose: 50 mcg Documented by: [id number] Admin: 05/09/19 10:41 Dose: 50 mcg Documented by: [id number] Gabapentin (Neurontin) 300 mg PO PREOP [facility] Stop: 05/09/19 18:00 Last Admin: 05/09/19 06:42 Dose: 300 mg Documented by: [id number] Hydromorphone HCl (Dilaudid) 0.5 mg IV Q5M PRN PRN Reason: PACU Use Only-Pain Stop: 05/09/19 12:32 Last Admin: 05/09/19 11:12 Dose: 0.5 mg Documented by: [id number] Admin: 05/09/19 11:06 Dose: 0.5 mg Documented by: [id number] Admin: 05/09/19 10:59 Dose: 0.5 mg Documented by: [id number] Admin: 05/09/19 10:54 Dose: 0.25 mg Documented by: [id number] Clindamycin Phosphate (Cleocin) 600 mg in 54 mls @ 100 mls/hr IV PREOP [facility] Stop: 05/10/19 05:59 Last Infusion: 05/09/19 13:41 Dose: 0 mls/hr Documented by: [id number] Admin: 05/09/19 07:38 Dose: 100 mls/hr Documented by: [id number] Lactated Ringer's (Lr) 1,000 mls @ 15 mls/hr IV .Q24H [facility] Stop: 05/10/19 05:59 Last Infusion: 05/09/19 07:38 Dose: 0 mls/hr Documented by: [id number] Admin: 05/09/19 06:42 Dose: 15 mls/hr Documented by: [id number] Sodium Chloride (Nss 1000ml) 1,000 mls @ 100 mls/hr IV .Q10H [facility] Stop: 06/08/19 11:55 Last Infusion: 05/10/19 05:26 Dose: 0 mls/hr Documented by: [id number] Admin: 05/09/19 22:25 Dose: 100 mls/hr Documented by: [id number] Infusion: 05/09/19 22:25 Dose: 100 mls/hr Documented by: [id number] Infusion: 05/09/19 14:30 Dose: 100 mls/hr Documented by: [id number] Admin: 05/09/19 13:12 Dose: 100 mls/hr Documented by: [id number] Clindamycin Phosphate 600 mg/ (Dextrose) 54 mls @ 100 mls/hr IV Q8H [facility] Stop: 05/10/19 00:33 Last Infusion: 05/10/19 00:17 Dose: 0 mls/hr Documented by: [id number] Admin: 05/09/19 23:44 Dose: 100 mls/hr Documented by: [id number] Infusion: 05/09/19 16:42 Dose: 0 mls/hr Documented by: [id number] Admin: 05/09/19 15:55 Dose: 100 mls/hr Documented by: [id number] Insulin Glargine (Lantus Solostar Pen) 15 units SC NOW [facility] Stop: 05/09/19 13:01 Last Admin: 05/09/19 13:54 Dose: 15 units Documented by: [id number] Cosigned by: [id number] Miscellaneous (Floseal Hemostatic Matrix 10ml) 15 ml TOP ONCE ONE Stop: 05/09/19 08:28 Last Admin: 05/09/19 08:33 Dose: 15 ml Documented by: [id number]
[2019-05-10] MEDS: INSULIN ASPART 100 UNITS/ML 3 ML PEN SC SCH ×4 (09:41→20:43)
[2019-05-10] MEDS: INSULIN GLARGINE SOLOSTAR 100 UNITS/ML 3 ML PEN SC SCH ×2 (09:42→20:44)
--- NOTE | 2019-05-10 10:56 | Orthopedic Progress Note ---
Date of Service May 10, 2019 Assessment & Plan (1) Neurogenic claudication due to lumbar spinal stenosis: This time we will continue physical therapy advance her bowel regimen anticipate discharge home next few days. Present on Admission?: Yes Subjective Back pain controlled leg symptoms markedly improved. Physical Exam Physical Exam: Patient is good strength testing appears comfortable. Results & Data Vital Signs (Past 12 Hours) Vital Signs Temp Pulse Pulse Pulse Pulse Resp BP 05/10/19 08:43 68 05/10/19 08:41 68 109/67 05/10/19 07:26 36.9 C 75 16 05/10/19 04:18 37 C 75 18 05/09/19 23:10 36.7 C 76 16 BP Pulse Ox 05/10/19 08:43 05/10/19 08:41 05/10/19 07:26 119/64 93 05/10/19 04:18 127/63 92 05/09/19 23:10 123/62 95
[2019-05-10] MEDS: OXYCODONE HCL IR 5 MG TAB (IMMEDIATE RELEASE) PO PRN (19:32)
[2019-05-10] MEDS: ATORVASTATIN 40 MG TAB PO SCH (20:35)
[2019-05-10] MEDS: DOCUSATE SODIUM/SENNA 50/8.6MG TAB PO SCH (20:36)
[2019-05-10] MEDS: SERTRALINE HCL 50 MG TABLET PO SCH (20:37)
[2019-05-10] MEDS: MAGNESIUM OXIDE 400 MG TAB PO SCH (20:37)
[2019-05-11] MEDS: LEVOTHYROXINE SODIUM 25 MCG TABLET PO SCH (05:28)
[2019-05-11] MEDS: TRAMADOL HCL 50 MG TABLET PO PRN ×2 (05:28→12:32)
[2019-05-11] MEDS: POLYETHYLENE (MIRALAX) 17 GM PACK PO SCH ×2 (05:30→11:59)
[2019-05-11] MEDS: ACETAMINOPHEN 500 MG TAB PO PRN (07:25)
[2019-05-11] MEDS: METOPROLOL TARTRATE 50 MG TAB PO SCH (08:14)
[2019-05-11] MEDS: PIROXICAM 10 MG CAP PO SCH (08:15)
[2019-05-11] MEDS: DIGOXIN 0.25 MG TAB PO SCH (08:16)
[2019-05-11] MEDS: MULTIVITAMIN TAB PO SCH (08:16)
[2019-05-11] MEDS: gemfibroziL 600 MG TAB PO SCH (08:17)
[2019-05-11] MEDS: INSULIN ASPART 100 UNITS/ML 3 ML PEN SC SCH ×2 (08:19→12:48)
[2019-05-11] MEDS: INSULIN GLARGINE SOLOSTAR 100 UNITS/ML 3 ML PEN SC SCH (08:19)
--- NOTE | 2019-05-11 09:52 | Hospitalist Progress Note ---
Date of Service May 11, 2019 Assessment & Plan (1) S/P spinal surgery: This is a 68yo F with a PMH of paroxysmal atrial tachycardia, IDDM, hypothyroidism, mood disorder and other medical problems listed below who is: POD #1 s/p #2 lumbar decompression with bilateral medial facetectomies and foraminotomies L3-4 L4-5 L5-S1, posterior spinal fusion L4-5 L5-S1 and placement posterior instrumentation L4-5 L5-S1 by Dr. Guerra. tolerated procedure well EBL 325ml; JACK drain output:600ml pain/wound management per ortho activity and therapy as directed my ortho encourage incentive spirometry H&H stable - pre op hgb 15.9, post op 12.3 (2) PAT (paroxysmal atrial tachycardia): rate and rhythm controlled on Digoxin and Lopressor Dig level 1.4 (3) Diabetes mellitus, type 2: A1c of 7.4 in Apr 2019 Hold invokana Given 15u x 1 Lantus post-operatively with BSG of 180 Basal bolus insulin ordered per protocol while in-patient BSG 101 this morning (4) Deep vein thrombosis: hx of RLE dvt 30 yrs ago on oral contraceptive dvt ppx per ortho (5) Depression: Continue Zoloft mood stable (6) Hyperlipidemia: Continue atorvastatin (7) Hypothyroidism: Continue levothyroxine PCP: Dr. Breaux in [place] Dispo: Per primary service Patient seen in and examined in collaboration with Dr. Lindsey. Please see addendum. Thank you for this consultation. We will follow the patient with you during their hospital stay. You can [facility] a [facility] via pager @ [phone]. Supervising Physician Co-Signing Physician Notes ATTENDING ADDENDUM : pt was seen by Odilia Pimentel PA-C in AM got discharged prior to rounding as per Odilia Pimentel's note 68 yo s/p lumber decompression surgery had uneventful recovery post op out pt meds resumed on discharge post surgery follow up as per Orthopedics please refer to documentation by Odilia Pimentel PA-c for discussion of chronic medical issues Katelin Lindsey MD Subjective Patient seen and examined in room 311-1. S/P Lumbar surgery by Dr. Guerra POD #2. She is lying in bed after ambulating with therapy. Overall feels well this morning. Had abdominal pain this morning, but was relieved with a large BM. Continues to have mild abdominal bloating, but no pain. She denies fever, chills, sweats, lightheadedness, dizziness, chest pain, shortness breath, cough, nausea, vomiting, dysuria, increased urgency or frequency with urination. She further denies melena. Overall decreased appetite, "I am not doing as much." She is urinating without difficulty. Review of Systems Review of Systems: All systems reviewed & are unremarkable except as noted in HPI & below Physical Exam Physical Exam: Gen: WD/WN, female, lying in bed, NAD, A&O x3 HEENT: Normocephalic, atraumatic, conjunctivae moist, sclerae anicteric, mucous membranes moist. Lung: Clear to Auscultation bilaterally, no wheezes/rales/rhonchi Heart: Regular rate, regular rhythm, 1/6 KRISH noted RUSB, no rubs, or gallops Abdomen: Soft, mild distention, NT, +BS x 4 Extremities: No edema, lumbar dressing CDI, JACK drain with serosanguineous drainage Skin: Warm, no rash, negative turgor. Results & Data Vital Signs (Past 12 Hours) Vital Signs Temp Pulse Pulse Pulse Resp BP BP 05/11/19 08:16 62 05/11/19 08:14 62 144/68 H 05/11/19 06:33 37.1 C 74 16 132/74 05/10/19 22:49 37.0 C 62 16 149/67 H Pulse Ox 05/11/19 08:16 05/11/19 08:14 05/11/19 06:33 92 05/10/19 22:49 91 Medications Administered Acetaminophen (Tylenol) 1,000 mg PO Q8H PRN PRN Reason: MILD Pain Rating 1,2,3 Stop: 06/08/19 11:55 Last Admin: 05/11/19 07:25 Dose: 1,000 mg Documented by: [id number] Admin: 05/10/19 13:16 Dose: 1,000 mg Documented by: [id number] Admin: 05/10/19 03:50 Dose: 1,000 mg Documented by: [id number] Atorvastatin Calcium (Lipitor) 40 mg PO HS [facility] Stop: 06/08/19 20:59 Last Admin: 05/10/19 20:35 Dose: 40 mg Documented by: [id number] Admin: 05/09/19 20:49 Dose: 40 mg Documented by: [id number] Digoxin (Lanoxin) 0.375 mg PO QAM [facility] Stop: 06/09/19 08:59 Last Admin: 05/11/19 08:16 Dose: 0.375 mg Documented by: [id number] Admin: 05/10/19 08:43 Dose: 0.375 mg Documented by: [id number] Gemfibrozil (Lopid) 600 mg PO BID [facility] Stop: 06/08/19 20:59 Last Admin: 05/11/19 08:17 Dose: 600 mg Documented by: [id number] Admin: 05/10/19 20:37 Dose: 600 mg Documented by: [id number] Admin: 05/10/19 08:43 Dose: 600 mg Documented by: [id number] Admin: 05/09/19 20:49 Dose: 600 mg Documented by: [id number] Insulin Aspart (Novolog Flexpen) 0 units SC ACHS [facility] Stop: 06/08/19 13:09 Last Admin: 05/11/19 08:19 Dose: Not Given Documented by: [id number] Cosigned by: [id number] Admin: 05/10/19 20:43 Dose: Not Given Documented by: [id number] Cosigned by: [id number] Admin: 05/10/19 18:03 Dose: Not Given Documented by: [id number] Cosigned by: [id number] Admin: 05/10/19 13:11 Dose: 2 units Documented by: [id number] Cosigned by: [id number] Admin: 05/10/19 09:41 Dose: 2 units Documented by: [id number] Cosigned by: [id number] Admin: 05/09/19 20:52 Dose: Not Given Documented by: [id number] Cosigned by: [id number] Admin: 05/09/19 17:35 Dose: 3 units Documented by: [id number] Cosigned by: [id number] Admin: 05/09/19 13:52 Dose: 4 units Documented by: [id number] Cosigned by: [id number] Insulin Glargine (Lantus Solostar Pen) 0 - 75 units SC BID [facility]; Protocol Stop: 06/08/19 20:59 Last Admin: 05/11/19 08:19 Dose: Not Given Documented by: [id number] Cosigned by: [id number] Admin: 05/10/19 20:44 Dose: 37 units Documented by: [id number] Cosigned by: [id number] Admin: 05/10/19 09:42 Dose: Not Given Documented by: [id number] Cosigned by: [id number] Admin: 05/09/19 20:48 Dose: 37 units Documented by: [id number] Cosigned by: [id number] Levothyroxine Sodium (Synthroid) 25 mcg PO DAILYBB [facility] Stop: 06/09/19 06:29 Last Admin: 05/11/19 05:28 Dose: 25 mcg Documented by: [id number] Admin: 05/10/19 05:39 Dose: 25 mcg Documented by: [id number] Lorazepam (Ativan) 0.5 mg PO Q8H PRN PRN Reason: Sedation/Anxiety Stop: 06/08/19 11:55 Last Admin: 05/09/19 17:38 Dose: 0.5 mg Documented by: [id number] Magnesium Hydroxide (Milk Of Magnesia) 30 ml PO DAILY PRN PRN Reason: Constipation Stop: 06/08/19 11:55 Last Admin: 05/11/19 05:28 Dose: 30 ml Documented by: [id number] Magnesium Oxide (Mag-Ox) 400 mg PO HS [facility] Stop: 06/08/19 20:59 Last Admin: 05/10/19 20:37 Dose: 400 mg Documented by: [id number] Admin: 05/09/19 20:51 Dose: 400 mg Documented by: [id number] Metoprolol Tartrate (Lopressor) 50 mg PO TID [facility] Stop: 06/08/19 13:59 Last Admin: 05/11/19 08:14 Dose: 50 mg Documented by: [id number] Admin: 05/10/19 20:36 Dose: 50 mg Documented by: [id number] Admin: 05/10/19 14:03 Dose: 50 mg Documented by: [id number] Admin: 05/10/19 08:45 Dose: 50 mg Documented by: [id number] Admin: 05/09/19 20:51 Dose: 50 mg Documented by: [id number] Admin: 05/09/19 13:11 Dose: 50 mg Documented by: [id number] Multivitamins (Multivitamin Tab) 1 tab PO QAM [facility] Stop: 06/09/19 08:59 Last Admin: 05/11/19 08:16 Dose: Not Given Documented by: [id number] Admin: 05/10/19 08:42 Dose: Not Given Documented by: [id number] Oxycodone HCl (Roxicodone Immediate Rel) 5 - 10 mg PO Q4H PRN PRN Reason: Moderate-Severe Pain Stop: 05/23/19 11:55 Last Admin: 05/10/19 19:32 Dose: 10 mg Documented by: [id number] Admin: 05/09/19 20:46 Dose: 10 mg Documented by: [id number] Admin: 05/09/19 12:48 Dose: 10 mg Documented by: [id number] Piroxicam (Feldene) 20 mg PO DAILY [facility] Stop: 06/09/19 08:59 Last Admin: 05/11/19 08:15 Dose: 20 mg Documented by: [id number] Admin: 05/10/19 08:43 Dose: 20 mg Documented by: [id number] Polyethylene Glycol (Miralax Powder Packet) 17 gm PO Q6 [facility] Stop: 06/09/19 05:59 Last Admin: 05/11/19 05:30 Dose: Not Given Documented by: [id number] Admin: 05/10/19 23:33 Dose: Not Given Documented by: [id number] Admin: 05/10/19 17:45 Dose: 17 gm Documented by: [id number] Admin: 05/10/19 13:14 Dose: 17 gm Documented by: [id number] Admin: 05/10/19 05:39 Dose: 17 gm Documented by: [id number] Senna/Docusate Sodium (Senokot S) 2 tab PO HS [facility] Stop: 06/08/19 20:59 Last Admin: 05/10/19 20:36 Dose: 2 tab Documented by: [id number] Admin: 05/09/19 20:52 Dose: 2 tab Documented by: [id number] Sertraline HCl (Zoloft) 50 mg PO QPM [facility] Stop: 06/08/19 20:59 Last Admin: 05/10/19 20:37 Dose: 50 mg Documented by: [id number] Admin: 05/09/19 20:52 Dose: 50 mg Documented by: [id number] Tramadol HCl (Ultram) 50 - 100 mg PO Q4H PRN PRN Reason: Moderate-Severe Pain Stop: 06/08/19 11:55 Last Admin: 05/11/19 05:28 Dose: 100 mg Documented by: [id number] Admin: 05/10/19 20:42 Dose: 100 mg Documented by: [id number] Admin: 05/10/19 08:47 Dose: 50 mg Documented by: [id number] Admin: 05/09/19 23:44 Dose: 100 mg Documented by: [id number] Admin: 05/09/19 15:58 Dose: 100 mg Documented by: [id number] Discontinued Medications Acetaminophen (Tylenol) 1,000 mg PO PREOP [facility] Stop: 05/09/19 18:00 Last Admin: 05/09/19 06:42 Dose: 1,000 mg Documented by: [id number] Bacitracin (Bacitracin) Confirm Administered Dose 50,000 units .ROUTE .STK-MED ONE Stop: 05/09/19 07:01 Last Admin: 05/09/19 08:32 Dose: 50,000 units Documented by: [id number] Bupivacaine HCl/Epinephrine Bitart (Bupivacaine 0.25%-Epi [id number]) Confirm Administered Dose 30 ml .ROUTE .STK-MED ONE Stop: 05/09/19 07:02 Last Admin: 05/09/19 08:33 Dose: 20 ml Documented by: [id number] Celecoxib (Celebrex) 200 mg PO PREOP [facility] Stop: 05/09/19 18:00 Last Admin: 05/09/19 06:42 Dose: 200 mg Documented by: [id number] Fentanyl Citrate (Fentanyl Citrate) 50 mcg IV Q5M PRN PRN Reason: PACU Use Only-Pain Stop: 05/09/19 12:32 Last Admin: 05/09/19 10:48 Dose: 50 mcg Documented by: [id number] Admin: 05/09/19 10:41 Dose: 50 mcg Documented by: [id number] Gabapentin (Neurontin) 300 mg PO PREOP [facility] Stop: 05/09/19 18:00 Last Admin: 05/09/19 06:42 Dose: 300 mg Documented by: [id number] Hydromorphone HCl (Dilaudid) 0.5 mg IV Q5M PRN PRN Reason: PACU Use Only-Pain Stop: 05/09/19 12:32 Last Admin: 05/09/19 11:12 Dose: 0.5 mg Documented by: [id number] Admin: 05/09/19 11:06 Dose: 0.5 mg Documented by: [id number] Admin: 05/09/19 10:59 Dose: 0.5 mg Documented by: [id number] Admin: 05/09/19 10:54 Dose: 0.25 mg Documented by: [id number] Clindamycin Phosphate (Cleocin) 600 mg in 54 mls @ 100 mls/hr IV PREOP [facility] Stop: 05/10/19 05:59 Last Infusion: 05/09/19 13:41 Dose: 0 mls/hr Documented by: [id number] Admin: 05/09/19 07:38 Dose: 100 mls/hr Documented by: [id number] Lactated Ringer's (Lr) 1,000 mls @ 15 mls/hr IV .Q24H [facility] Stop: 05/10/19 05:59 Last Infusion: 05/09/19 07:38 Dose: 0 mls/hr Documented by: [id number] Admin: 05/09/19 06:42 Dose: 15 mls/hr Documented by: [id number] Sodium Chloride (Nss 1000ml) 1,000 mls @ 100 mls/hr IV .Q10H [facility] Stop: 06/08/19 11:55 Last Infusion: 05/10/19 05:26 Dose: 0 mls/hr Documented by: [id number] Admin: 05/09/19 22:25 Dose: 100 mls/hr Documented by: [id number] Infusion: 05/09/19 22:25 Dose: 100 mls/hr Documented by: [id number] Infusion: 05/09/19 14:30 Dose: 100 mls/hr Documented by: [id number] Admin: 05/09/19 13:12 Dose: 100 mls/hr Documented by: [id number] Clindamycin Phosphate 600 mg/ (Dextrose) 54 mls @ 100 mls/hr IV Q8H [facility] Stop: 05/10/19 00:33 Last Infusion: 05/10/19 00:17 Dose: 0 mls/hr Documented by: [id number] Admin: 05/09/19 23:44 Dose: 100 mls/hr Documented by: [id number] Infusion: 05/09/19 16:42 Dose: 0 mls/hr Documented by: [id number] Admin: 05/09/19 15:55 Dose: 100 mls/hr Documented by: [id number] Insulin Glargine (Lantus Solostar Pen) 15 units SC NOW STA Stop: 05/09/19 13:01 Last Admin: 05/09/19 13:54 Dose: 15 units Documented by: [id number] Cosigned by: [id number] Miscellaneous (Floseal Hemostatic Matrix 10ml) 15 ml TOP ONCE ONE Stop: 05/09/19 08:28 Last Admin: 05/09/19 08:33 Dose: 15 ml Documented by: [id number]
--- NOTE | 2019-05-11 12:16 | Discharge Summary ---
Date of Service May 11, 2019 Admission HPI Per Admitting Provider This is a 68-year-old male who presents with chronic persistent back and bilateral leg pain. After failing extensive course of nonoperative care is here for surgical intervention. Principal Diagnosis Lumbar spinal stenosis with neurogenic claudication Discharge Data Allergies Allergy/AdvReac Type Severity Reaction Status Date / Time Penicillins Allergy Severe HIVES, Verified 05/09/19 06:18 DIFFICULTY BREATHING metformin AdvReac ADVISED TO Verified 05/09/19 06:18 AVOID (SEE COMMENTS) Consultations 05/09/19 11:56 Consult Case Management - Discharge Planning Routine Consult Hospitalist Routine Procedures Performed Operation Date: 05/09/19 07:45 Actual Procedures p L4-S1 Decompression and Fusion, with use of Infuse and Spinal Cord Monitoring - Joao Guerra DO Ordered Studies 05/09/19 07:45 FL fluoroscopy <1hr Routine FL lumbar spine 2-3V Routine Hospital Course (1) Neurogenic claudication due to lumbar spinal stenosis: Patient underwent multilevel lumbar decompression fusion tolerated this well and went to the orthopedic for postoperative. Postop day and when she was up and ambulating leg symptoms improved. She progressed to postop day #2. JACK drain decreasing appropriately. Pain well controlled. Neurologically intact. Subsequently discharged home. Discharge orders instructions from the chart for further review. Total Time Total Time Spent Total Time Spent (In Minutes): 20 minutes Discharge Plan Discharge Items Patient Disposition: Home - Self-Care Reason For Visit: Other Biomechanical Lesions of Lumbar Region Discharge Diagnosis: Lumbar spinal stenosis with neurogenic claudication Activity: As commented below Non-emergency contact: Primary Care Provider Call non-emergency contact if: you have any medication questions Follow-up/Referrals: Danie Breaux MD [Primary Care Provider] - Diet: Regular Addtl Attending Provider Instructions: ACTIVITY RECOMMENDATIONS: SELF CARE INSTRUCTIONS AFTER THORACIC/LUMBAR FUSIONS 1. You may walk to your tolerance. It is good exercise for your legs and back. Expect some back and intermittent leg aches and pains. 2. You may perform "counter-top" level activities (make a sandwich, pancho with a project, etc.). 3. No bending or lifting of more than 10 pounds or back twisting of any nature (roll like a log when turning in bed). 4. You may ride in a car for 20-30 minutes at a time. No driving until after your first visit with your doctor. 5. Frequent changes of position and restricting sitting to 30 minutes at a time will help limit the amount of back spasms and stiffness you may experience. 6. You may discontinue the use of ambulatory aids (cane, crutches, etc.) once your strength and confidence allow. 7. You may production superintendent the shower and let water strike your incision when you arrive home at least once daily. Do not take a tub bath, sit in a hot tub or go into a swimming pool until after your first recheck in the office. SPECIAL CARE INSTRUCTIONS: VERY IMPORTANT TO READ AND REVIEW A. Your surgical incision has been closed with a cosmetic suture under the skin that will dissolve in about 6 weeks. In 14 days, you can use a pair of clean scissors and cut the suture that is left outside of the skin at the ends of your incision. 1. The small skin tapes can be removed 7 days after surgery if they have not fallen off by that point. 2. You may keep the wound open to air as much as possible to promote healing after post-op day number 5 unless told otherwise by your doctor. 3. If you think the wound looks like it is becoming infected (redness or worsening drainage) and/or you are experiencing fever, chill or worsening back pain and muscle spasms, contact the office so that we may evaluate you as soon as possible. B. Complications are uncommon, but please contact us if you have any signs or symptoms of: 1. wound infection (fever higher than 102.5 degrees F, redness, separation of wound, drainage, or increasing pain from the incision) 2. blood clots in legs (pain, swelling, redness and warmth in legs) 3. urinary tract infection (fever higher than 102.5 degrees F, burning upon urination or increased frequency of urination) 4. nerve problems (inability to walk on your toes or heels, numbness, loss of bowel or bladder control) 5. any other symptoms that concern you C. Please call the office at if you have any concerns or questions about your operation or recovery. D. No smoking! Smoking drastically decreases the chance of a solid fusion. E. Do not take any anti-inflammatory medications (Indocin, Advil, Motrin, Aspirin, Naprosyn, etc.) as these may inhibit the chance of a solid fusion. Tylenol is okay to take for pain. MANAGING PAIN AFTER SPINAL SURGERY 1. Narcotic medication is intended for short-term use and will be provided for surgical pain. Surgical pain usually lasts for a period of 4-6 weeks. Narcotic medication includes Percocet, Vicodin, Darvocet, Tylenol #3 or Lortab. 2. Longer-term pain is more appropriately treated with non-narcotic medication such as Tylenol ES. 3. Muscle spasm is not appropriately treated with narcotics. Muscle relaxers such as Soma, Flexeril or Skelaxin can be used along with Tylenol ES. 4. Remember that we all live with some "aches and pains". This is not unusual or uncommon after an injury or as we get older. a. Back pain is expected and may include muscle spasms for 4 to 6 weeks after surgery. The pain should gradually improve. If the pain worsens for no apparent reason, please contact the office. b. Intermittent leg pain may also be experienced and should not be concerned about unless it worsens for no apparent reason. If so, please contact the office. 5. We will provide appropriate medication within the normal guidelines of their prescribed use. We will also be very cautious and aware of potential abuse and extended duration of patients' medication needs. a. Pain medications are for your comfort and to assist with sleep and rest so that the tissue can heal. They are not provided in order to return to normal activity and should not be used through the day. To do so or worsening pain at night can result from ongoing tissue damage and development of tolerance to the prescribed medicine. 6. Please allow 2-3 days to process refills. Prescriptions will not be mailed but must be picked up at the office. FOLLOW UP VISIT: Keep your scheduled follow-up appointment. Any questions, please call the office at . Pending Studies at Discharge: No Stand-Alone Forms: [facility], Smoking Cessation Medications and DC Order Prescriptions: New tramadol 50 mg tablet 50 mg PO Q6H PRN (Reason: pain, moderate) Qty: 30 RF: 0 oxycodone 5 mg tablet 5 mg PO Q6H PRN (Reason: pain, severe) Qty: 30 RF: 0 Continued atorvastatin [Lipitor] 40 mg Tablet 40 mg PO HS RF: 0 Lantus U-100 Insulin 100 unit/mL Solution 75 unit SUBCUT BID RF: 0 digoxin [Digox] 250 mcg (0.25 mg) Tablet 375 mcg PO DAILY RF: 0 levothyroxine 25 mcg Tablet 25 mcg PO QAM RF: 0 oxycodone-acetaminophen [Percocet] 5-325 mg Tablet 0.5 tab PO Q6H PRN (Reason: Pain) RF: 0 gemfibrozil 600 mg Tablet 600 mg PO BID RF: 0 metoprolol tartrate 50 mg Tablet 50 mg PO TID RF: 0 sertraline [Zoloft] 50 mg Tablet 50 mg PO QPM RF: 0 Invokana 300 mg Tablet 300 mg PO QAM RF: 0 magnesium 250 mg Tablet 250 mg PO HS RF: 0 potassium gluconate 600 mg (99 mg) Tablet 600 mg PO HS RF: 0 Hair,Skin and Nails(FA-biotin) 66.7-1,000 mcg Tablet 1 tab PO QAM RF: 0 Discontinued piroxicam 20 mg Capsule 20 mg PO DAILY RF: 0 Discharge Orders: Discharge Order (Routine); Ordered 05/11/19 Ordered By: Joao Sorenson/Other Patient Handouts: Surgery Prevent DVT After, Diabetes Intermediate Complications, Diabetes Type 2 Coping, Diabetes Healthy Meals, Diabetes Carbs, Diabetes Exercise Benefits, Diabetes Exercise Get Started, Diabetes Activity Tips, Diabetes Living Life, A1C Admission Data Admit Date/Time: 05/09/19 10:28 Attending Provider: Joao Guerra Admit Provider: Joao Guerra Primary Care Provider: Danie Breaux Other Providers: Katelin Lindsey Other Interventions: Discharge Summary Assessment (RN) Last Done: 05/11/19 10:37
== END 2019-05-11 13:47 | disposition home or self-care (01) | DRG 454 ==
LOC: ASU 05:55 → 3E 10:28